=== PATIENT | female | born 1965 | race Caucasian/White ===

== ENCOUNTER 2021-05-26 15:47 | Emergency (ER) | payer OTHER, SELFPAY ==
--- NOTE | 2021-05-26 15:55 | ED.GENADULT ---
HPI - General Adult General Chief complaint: Urogenital-Female Stated complaint: CHILLS/FEVER/BACK & SIDE PAIN Source: patient Mode of arrival: ambulatory Limitations: no limitations History of Present Illness HPI narrative: Patient is a 55-year-old female who presents to the [facility] via POV for evaluation of a urinary problem that began approximately 2 to 3 weeks ago. Additionally, she states she has had chills, fever, back pain, cloudy urine, nausea. Temperature was 100.5. Ibuprofen has provided minimal relief. Nothing improves or worsen symptoms. Patient reports she was recently on a course of ciprofloxacin although she does not feel this works as well as Macrobid. She states this problem has been ongoing . She has had her PCP. Ultrasound was negative. Vitamin C and vitamin that she is unable to remember was recommended. Related Data Home Medications Medication Instructions Recorded Confirmed atorvastatin 05/26/21 bupropion HCl mg PO 05/26/21 metformin mg PO 05/26/21 thyroid (pork) [[place] Thyroid] 05/26/21 triamterene-hydrochlorothiazid cap 05/26/21 Allergies Allergy/AdvReac Type Severity Reaction Status Date / Time ezetimibe Allergy Intermediate HIVES Verified 02/25/14 14:48 Sulfa (Sulfonamide Allergy Intermediate HIVES Verified 02/25/14 14:48 Antibiotics) codeine Allergy Mild VOMITING Verified 02/25/14 14:48 Review of Systems Review of Systems: Denies history of pyelonephritis and renal calculi. Pertinent negatives: sweats, change in appetite, poor p.o. intake, malaise, recent weight loss, myalgias, lymphadenopathy, headache, dizziness, STD exposure, painful intercourse, abdominal pain, constipation, nausea, vomiting, diarrhea, abdominal cramping, dysuria, hematuria, urinary frequency/urgency, urinary incontinence, vaginal bleeding/discharge, penile drainage, testicular pain, shortness of breath, chest pain, and heart palpitations/murmurs. [facility] Past Medical History Medical History (Updated 05/26/21 @ 16:16 by Debra Gallardo, [employer]ITION WORK[employer], ) Diabetes mellitus Hyperlipidemia Hypertension Hypothyroidism Comments I have reviewed and agree with the patient's past medical, surgical, social, and family hx as documented by the RN. There is no relevant family history pertinent to the presenting complaint. Exam Narrative: GENERAL: Well-appearing, well-nourished, and in no acute distress. HEAD: Normocephalic, atraumatic. NECK: Supple. No lymphadenopathy or nuchal rigidity. CHEST: Lung sounds are clear to auscultation in bilateral lung duggan. No respiratory distress. HEART: Regular rate and rhythm. No murmur, gallop, or rub heard. ABDOMEN: Soft, non-tender, non-distended, normal active bowel sounds in all quadrants. No guarding. No rebound tenderness. No pulsatile or palpable abdominal mass(es). No CVATGU: Bladder non-distended, non-tender EXTREMITIES: Normal range of motion. No edema. SKIN: Warm, dry, no rash. No skin color changes. Excellent turgor. NEURO: No focal deficits. Alert and oriented x3. SPECIAL OBSERVATIONS: Smiling. Laughing. Course Course Emergency Course: The patient/guardian displays adequate decision making capability and despite a detailed discussion of alternatives, benefits, risks, and consequences refuses EMS transport to ER. Will transport via POV. Vital Signs Vital signs: Reviewed. Due to an elevated blood pressure, I had a detailed discussion with the patient and/or guardian regarding the need for follow-up with their primary care provider within the next 3-4 days. Patient verbalized understanding and agreed. Transfer Transfered to: [place] Transportation: Other (pov) Transfer rationale: r/o pyelo Accepting physician: ERLINDA Zambrano Transfer comments: All questions answered. Patient stable at time of transfer. Medical Decision Making Differential Diagnosis Differential Diagnosis: Nephrolithiasis, urinary tract infection, pyelonephritis, frequency of micturitio
[2021-05-26 15:56] VITALS: BP 148/81; PULSE 97; RESP 16; TEMP 38.1; O2SAT 100
== END 2021-05-26 16:16 | disposition short-term general hospital (02) ==
PROVIDERS: Emergency Provider Nurse Practitioner Family; PCP Internal Medicine
DX: N30.90 Cystitis, unspecified without hematuria (principal); E11.9 Type 2 diabetes mellitus without complications; E78.5 Hyperlipidemia, unspecified; I10 Essential (primary) hypertension; E03.9 Hypothyroidism, unspecified
CPT/HCPCS: 81003; 87077; 87086; 87088; 87186; 99203; G0463

== ENCOUNTER 2021-05-26 16:33 | Inpatient (IN) | payer OTHER, SELFPAY ==
--- NOTE | ~2021-05-26 | CT_ITS ---
EXAMINATION: CT abdomen pelvis wo con DATE: 05/26/2021 21:22 INDICATION: Right flank pain and dysuria. TECHNIQUE: Computed tomography (CT) of the abdomen and pelvis was performed without intravenous contr ast. Automated exposure control and iterative reconstruction technique were employed. The dose-length product was 561.58 mGy-cm. COMPARISON: None FINDINGS: Mild discoid atelectasis/scarring at the lingula and bilateral lower lobes. Calcified left lower lobe nodules consistent with old granulomatous disease. Heart size is normal. No pericardial or pleural e ffusion. Suggestion of sludge along with couple calcified gallstones in the dependent aspect of the n ormal-appearing gallbladder. Diffuse hepatic steatosis. Spleen, pancreas and bilateral adrenal glands are normal. Kidneys and ureters are normal with no urolithiasis, hydroureteronephrosis or perinephri c/ureteral stranding. Bowels including the appendix are normal. Bladder is normal. The uterus is not identified and has likely been surgically resected. No free intraperitoneal gas or fluid. No patholog ically enlarged abdominal or pelvic lymphadenopathy. There are few scattered small sclerotic bone isl ands at the bilateral superior pubic rami, at L4 and at the left femoral neck. IMPRESSION: 1. No urolithiasis or acute intra-abdominal/pelvic process. 2. Cholelithiasis. Reviewed, dictated and finalized at location A.
[2021-05-26 16:36] VITALS: BP 147/72; PULSE 102; RESP 20; TEMP 37.6; O2SAT 100
[2021-05-26 18:46] LABS: Basophils Percent Auto 0.3 % (0.2-1.2); Eosinophils Absolute Auto 0.1 K/mm3 (0-0.3); Eosinophils Percent Auto 0.5 % (0-4.4); Hemoglobin 13.9 g/dL (12.0-15.0); Immature Granulocyte Absolute 0.04 K/mm3 (0.00-0.031); Immature Granulocyte Percent A 0.3 % (0-0.5); Lymphocytes Absolute Auto 0.75 K/mm3 (0.9-3.2); Mean Corpuscular HGB Conc 33.9 g/dl (32-36); Mean Corpuscular Hemoglobin 30.4 pg (26-34); Mean Corpuscular Volume 89.7 fl (80-100); Mean Platelet Volume 9.9 fl (7.4-10.4); Monocytes Absolute Auto 0.6 K/mm3 (0.1-0.6); Monocytes Percent Auto 4.9 % (2.6-8.5); Neutrophils Absolute Auto 11.1 K/mm3 (1.3-6.7); Platelet Count Result 366 k/mm3 (150-375); Red Blood Count 4.57 M/mm3 (4.2-5.4); Red Cell Distribution Width 13.2 % (11.5-14.5); White Blood Count 12.6 K/mm3 (4.5-10.0)
[2021-05-26 18:54] LABS: Add Urine Microscopic? YES; Appearance Urine Cloudy (Clear); Bacteria Urine Trace /hpf; Bilirubin Urine Negative (Negative); Color Urine Yellow (Yellow); Glucose Urine UA Negative (Negative); Ketones Urine Negative (Negative); Leukocyte Esterase Ur 2+ LEU/UL (Negative); Mucus Urine Rare /lpf; Nitrate Urine Positive (Negative); Protein Urine 1+ mg/dL (Negative); Specific Grav Ur 1.015 (1.001-1.035); Squamous Epithelial Cell Urine Few /hpf (Few); Urobilinogen Urine Negative mg/dL (<2.0); WBC Urine >75 /hpf
[2021-05-26 19:00] LABS: Alanine Aminotransferase 31 U/L (4-35); Albumin Level 5.3 g/dL (3.5-5.1); Alkaline Phosphatase 149 U/L (38-126); Anion Gap 15 mmol/L (8-16); Aspartate Amino Transferase 33 U/L (14-36); Blood Urea Nitrogen 15 mg/dL (7-17); Calcium 10.1 mg/dL (8.4-10.2); Carbon Dioxide 27 mmol/L (22-30); Chloride 97 mmol/L (98-107); Estimated CRCL calculation 75 ml/min; Estimated Glomerular Filt Rate > 60; Glucose 146 mg/dL (65-110); Potassium 3.9 mmol/L (3.4-5.0); Sodium 139 mmol/L (137-145)
[2021-05-26 19:07] LABS: Blood Urine Negative (Negative)
[2021-05-26] MEDS: KETOROLAC 30 MG/ML VIAL (*BKC) IV PUSH (21:10)
--- NOTE | 2021-05-26 21:21 | ED.FEMALEGU ---
HPI - Female Genitourinary General Chief complaint: Urogenital-Female Stated complaint: fever, right flank pain Time Seen by Provider: 05/26/21 19:34 Source: patient Mode of arrival: ambulatory History of Present Illness HPI Narrative: 55-year-old female Complains of 1 day history of right-sided flank pain urinary frequency subjective fevers and nausea She apparently has been having a number of recent urinary tract infections and was recently evaluated by urology elsewhere for this and is taking cranberry juice and probiotics She had an ultrasound done also elsewhere which did not show any abnormalities or blockages as far as she knows Related Data Home Medications Medication Instructions Recorded Confirmed atorvastatin 05/26/21 bupropion HCl mg PO 05/26/21 fluoxetine mg 05/26/21 metformin mg PO 05/26/21 thyroid (pork) [[place] Thyroid] 05/26/21 triamterene-hydrochlorothiazid cap 05/26/21 Allergies Allergy/AdvReac Type Severity Reaction Status Date / Time ezetimibe Allergy Intermediate HIVES Verified 05/26/21 19:16 Sulfa (Sulfonamide Allergy Intermediate HIVES Verified 05/26/21 19:16 Antibiotics) codeine Allergy Mild VOMITING Verified 05/26/21 19:16 Review of Systems Review of Systems: All systems reviewed & are unremarkable except as noted in HPI and below Constitutional: Constitutional: Reports no additional constitutional complaints, Reports chills, Reports fatigue, Denies fever(s) and Denies headache(s) Eyes: Eyes: Reports no additional eye complaints and Denies change in vision ENT: Denies headache(s) and Denies sore throat Cardiovascular: Cardiovascular: Denies chest pain and Denies dyspnea Respiratory: Respiratory: Denies cough and Denies dyspnea Gastrointestinal: Gastrointestinal: Reports abdominal pain, Denies diarrhea, Reports nausea and Denies vomiting Genitourinary: Genitourinary: Denies urinary frequency, Reports nocturia, Reports dysuria and Reports flank pain Musculoskeletal: Musculoskeletal: Denies deformity, Denies arthralgias, Denies joint swelling and Denies numbness Integumentary/Breasts: Skin/Breast: Denies rash and Denies wounds Neurologic: Denies headache(s), Denies focal weakness and Denies numbness Psychiatric: Psychiatric: Reports no additional psychiatric complaints Endocrine: Endocrine: Reports no additional endocrine complaints Hematologic/Lymphatic: Hematologic/Lymphatic: Reports no additional hematologic/lymphatic complaints Allergic/Immunologic: Allergic/Immunologic: Reports no additional allergic/immunologic complaints [facility] Past Medical History Medical History (Updated 05/26/21 @ 21:53 by Sb Torres MD) Diabetes mellitus Hyperlipidemia Hypertension Hypothyroidism Exam Const: General: cooperative and no acute distress Orientation/consciousness: patient oriented x3 (alert) HENMT: Head: normal to inspection, normocephalic and atraumatic Ears: external ears normal General nose exam: no epistaxis Eyes: Conjunctivae: conjunctivae normal EOM: EOMs intact bilaterally Neck: Neck: normal visual inspection, supple and no JVD Resp: Effort & Inspection: normal respiratory effort and not labored Auscultation: clear to auscultation bilaterally, no rales, no rhonchi, no wheezes and other (BS =) Cardio: Rate: regular rate Rhythm: regular rhythm Heart sounds: no murmurs GI: GI Palp: Yes Soft to palpation, No Tenderness to palpation present (GI), No Guarding due to palpation present (GI) and No Rebound tenderness present : General: Yes no CVA tenderness Skin: General skin exam: normal color and no rashes or lesions noted Neuro: General: patient oriented x3 (alert) and moves all extremities Speech: normal speech Extrem: General: normal to inspection and no pedal edema Psych: Affect: normal affect Course Vital Signs Vital signs: Vital Signs Temperature 37.6 C 05/26/21 16:36 Pulse Rate 102 H 05/26/21 16:36 Respiratory Rate 2
[2021-05-26 21:33] VITALS: BP 145/73; PULSE 97; RESP 18; O2SAT 92
[2021-05-26] MEDS: LACTATED RINGERS 1,000 ML 999 ML IV CONT (22:17)
[2021-05-26 22:34] VITALS: BP 141/75; PULSE 93; RESP 14; O2SAT 95
[2021-05-26 23:42] VITALS: BP 117/62; PULSE 88; RESP 14; O2SAT 93
[2021-05-27] VITALS (13 sets, daily range): BP systolic 100–143; BP diastolic 50–61; PULSE 75–86; RESP 16–18; TEMP 36.9–38.2; O2SAT 94–98; BMI 34.9
[2021-05-27] MEDS: SODIUM CHLORIDE 0.9% IV 1,000 ML 125 ML IV CONT ×3 (00:36→16:37)
--- NOTE | 2021-05-27 00:40 | ADMGEN ---
This patient, Tammi Mercado, was admitted to Medical Room 348-. Patient/family oriented to hospital policies and general routines including ID bracelet, bed and alarms, visiting hours, pain management, procedures, bathroom and other care routines, personal items, smoking policy, room service/diet, and visiting hours. Information on how to activate the Rapid Response Team has been discussed. Patient/Family are encouraged to report perceived risks to care and to ask questions if they do not understand what they are told or what they should do.
[2021-05-27 00:54] LABS: Glucose Point of Care 149 mg/dl (65-105)
--- NOTE | 2021-05-27 02:21 | PM.IMHP ---
H&P: HPI History of Present Illness Date/Time: 05/27/21 02:21 Chief Complaint: UTI Narrative: 55-year-old female who presents with a day history of right-sided flank pain urinary symptoms with fever and nausea. She reports she has numerous urinary tract infection and has been evaluated a number of times. She states she gets antibiotic but does not clear out the complete the see gets another bout of infection again in few weeks. She reports he has never been told what bacteria has grown and whether not she has any resistant organism in her urinary tract infections. She reports he has about 8 UTI this year and about 4-5 last year. It has progressively gotten worse over the past few years now. She has also seen a urologist for this without any form diagnosis. She denies any vaginal infection in the past. In the ER she was noted to be toxic with fever mild tachycardia mild leukocytosis and was suggested to observe overnight with hydration inappropriate antibiotic for discharge since he failed multiple outpatient treatments in the past. Review of Systems Review of Systems: - CONSTITUTIONAL: Denies weight loss, Reports fever and chills. - HEENT: Denies changes in vision and hearing - RESPIRATORY: Denies SOB and cough. - CV: Denies palpitations and CP. - GI: Denies abdominal pain, vomiting and diarrhea. reports flank pain and nausea - : reports dysuria and urinary frequency. - MSK: Denies myalgia and joint pain. - SKIN: Denies rash and pruritus. - NEUROLOGICAL: Denies headache and syncope. - PSYCHIATRIC: Denies recent changes in mood. Denies anxiety and depression. All systems reviewed & are unremarkable except as noted in HPI and below Constitutional: Constitutional: Reports fatigue and Reports weakness Neurologic: Reports weakness Endocrine: Endocrine: Reports fatigue [facility] Past Medical History Medical History Diabetes mellitus Hyperlipidemia Hypertension Hypothyroidism Family History Family History (Updated 05/27/21 @ 00:47 by Kate Khan RN) Mother Graves disease Father Heart disease Hypertension Cerebrovascular accident Grandparent Diabetes type I Social History Social History (Updated 05/27/21 @ 00:48 by Kate Khan RN) Smoking status: Never smoker Alcohol intake: current Drinks per week: 3 Substance use: never Living arrangements: with family Spiritual care concerns: No Meds Home Medications and Allergies Home Medications Medication Instructions Recorded Confirmed Type atorvastatin 20 mg PO DAILY 05/26/21 05/27/21 History bupropion HCl 150 mg PO DAILY 05/26/21 05/27/21 History fluoxetine 40 mg PO DAILY 05/26/21 05/27/21 History metformin 500 mg PO DAILY 05/26/21 05/27/21 History thyroid (pork) [[place] Thyroid] 90 mg PO DAILY 05/26/21 05/27/21 History triamterene-hydrochlorothiazid 1 cap PO DAILY 05/26/21 05/27/21 History Allergies Allergy/AdvReac Type Severity Reaction Status Date / Time ezetimibe Allergy Intermediate HIVES Verified 05/27/21 00:52 Sulfa (Sulfonamide Allergy Intermediate HIVES Verified 05/27/21 00:52 Antibiotics) codeine Allergy Mild VOMITING Verified 05/27/21 00:52 Vital Signs Vital Signs - 24 hr 05/26/21 16:36 05/26/21 21:33 05/26/21 22:34 Temperature 99.6 F Pulse Rate 102 H 97 93 Respiratory Rate 20 18 14 Blood Pressure 147/72 H 145/73 H 141/75 H Pulse Oximetry 100 92 95 05/26/21 23:42 05/27/21 00:39 05/27/21 02:14 Temperature 98.4 F 99.7 F H Pulse Rate 88 86 Respiratory Rate 14 18 Blood Pressure 117/62 143/61 H Pulse Oximetry 93 98 Exam Narrative: GENERAL: The patient is well developed, not in acute distress febrile to touch HEENT: Nonicteric sclerae, PERRLA, EOMI. Oropharynx clear. Moist mucous membranes. Conjunctivae appear well perfused. CHEST: Chest wall is nontender. HEART: Regular rate and rhythm without murmur, rubs, or gallops
[2021-05-27] MEDS: IBUPROFEN 400 MG TABLET PO (02:34)
[2021-05-27 07:02] LABS: Basophils Percent Auto 0.2 % (0.2-1.2); Hematocrit 36.6 % (37.0-47.0); Hemoglobin 11.8 g/dL (12.0-15.0); Immature Granulocyte Absolute 0.09 K/mm3 (0.00-0.031); Immature Granulocyte Percent A 0.6 % (0-0.5); Lymphocytes Absolute Auto 0.93 K/mm3 (0.9-3.2); Lymphocytes Percent Auto 6.4 % (18.3-44.2); Mean Corpuscular HGB Conc 32.2 g/dl (32-36); Mean Corpuscular Hemoglobin 30.3 pg (26-34); Mean Corpuscular Volume 93.8 fl (80-100); Mean Platelet Volume 9.5 fl (7.4-10.4); Monocytes Absolute Auto 0.8 K/mm3 (0.1-0.6); Monocytes Percent Auto 5.8 % (2.6-8.5); Neutrophils Absolute Auto 12.7 K/mm3 (1.3-6.7); Platelet Count Result 286 k/mm3 (150-375); Red Cell Distribution Width 13.6 % (11.5-14.5); White Blood Count 14.6 K/mm3 (4.5-10.0)
[2021-05-27 08:00] LABS: Glucose Point of Care 134 mg/dl (65-105)
[2021-05-27] MEDS: FLUoxetine HCL 20 MG CAPSULE 40 MG PO (08:12)
[2021-05-27] MEDS: metFORMIN HCL XR 500 MG TAB.SR.24H PO (08:12)
[2021-05-27] MEDS: TRIAMTERENE 37.5 MG/HCTZ 25 MG (MAXZIDE) TABLET 1 TAB PO (08:13)
[2021-05-27] MEDS: ATORVASTATIN 20 MG TABLET PO (08:13)
[2021-05-27] MEDS: THYROID 30 MG TABLET 90 MG PO (08:13)
[2021-05-27] MEDS: buPROPion HCL XL (24 HR) 150 MG TABCR PO (08:13)
[2021-05-27 12:01] LABS: Glucose Point of Care 121 mg/dl (65-105)
[2021-05-27] MEDS: ONDANSETRON INJ 4 MG/2 ML VIAL IV PUSH (13:30)
--- NOTE | 2021-05-27 13:43 | PM.IMPN ---
Progress Note: A&P Assessment and Plan (1) UTI (urinary tract infection): Code(s): N39.0 - Urinary tract infection, site not specified Status: Acute Assessment and Plan: UA suspicious for UTI which correlates with symptoms - continue ceftriaxone, await urine cultures - she has tried Cipro and Macrobid outpatient and these have failed - she says she had urine cultures done with her primary care physician and I will try to request these records - continue ceftriaxone but if she continues to be febrile early tomorrow, may consider broadening antibiotics (2) Sepsis secondary to UTI: Code(s): A41.9 - Sepsis, unspecified organism; N39.0 - Urinary tract infection, site not specified Status: Acute Assessment and Plan: patient was septic on admission with increased white blood cell count and fevers - no blood cultures were drawn but I will draw them now stat while she has a fever for a better yield. She has had antibiotics so this may lower sensitivity - white blood cell count slightly worse today. Will trend with tomorrow labs. if it continues to go up, may consider broadening antibiotics - will check lactic acid - continue IV fluids (3) Hypertension: Code(s): I10 - Essential (primary) hypertension Status: Acute Assessment and Plan: last blood pressure 100/50 - will hold blood pressure medications at this time - this could be restarted once patient's blood pressure improves (4) Hypothyroidism: Code(s): E03.9 - Hypothyroidism, unspecified Status: Acute Assessment and Plan: continue [place] Thyroid, check TSH in the morning (5) Diabetes mellitus: Code(s): E11.9 - Type 2 diabetes mellitus without complications Status: Acute Assessment and Plan: last glucose 121 - continue metformin - patient states her last A1c was around 4 months ago and was in the 5s (6) Hyperlipidemia: Code(s): E78.5 - Hyperlipidemia, unspecified Status: Acute Assessment and Plan: continue Lipitor Time Spent With Patient Time with patient: 25 - 35 minutes Subjective Date/time seen: 05/27/21 13:43 Interval history: Pt is a 55-year-old female here for complicated UTI. Patient states she does not feel well today and is currently having fevers and significant nausea. She did have vomiting earlier and just overall does not feel well. She does have some back pain on her left flank that has improved since yesterday but still not great. She has chest pain, shortness of breath, abdominal pain or leg swelling. She said she tried Cipro and Macrobid outpatient Review of Systems Review of Systems: All systems reviewed & are unremarkable except as noted in HPI and below Exam Narrative: General: Well developed well nourished patient in NAD HEENT: normocephalic Neck: supple Neuro: Alert and oriented x4 CV:RRR Resp:CTA Abd: Soft, non distended. No pain to palpation. Positive bowel sounds. CVA tenderness to the left Extremities: No swelling, erythema, or pain to palpation. Objective Data Vital Signs Vital Signs: Vital Signs - 24 hr 05/26/21 16:36 05/26/21 21:33 05/26/21 22:34 Temperature 99.6 F Pulse Rate 102 H 97 93 Respiratory Rate 20 18 14 Blood Pressure 147/72 H 145/73 H 141/75 H Pulse Oximetry 100 92 95 05/26/21 23:42 05/27/21 00:39 05/27/21 02:14 Temperature 98.4 F 99.7 F H Pulse Rate 88 86 Respiratory Rate 14 18 Blood Pressure 117/62 143/61 H Pulse Oximetry 93 98 05/27/21 02:34 05/27/21 03:34 05/27/21 03:38 Temperature 99.7 F H 99.3 F 99.3 F Pulse Rate Respiratory Rate Blood Pressure Pulse Oximetry 05/27/21 04:53 05/27/21 08:11 05/27/21 13:24 Temperature 99.4 F 100.7 F H 100.3 F H Pulse Rate 80 Respiratory Rate 16 Blood Pressure 100/50 L Pulse Oximetry 96 Intake/Output Intake/Output: Intake & Output 05/24/21 05/25/21 05/26/2105/27
[2021-05-27 14:20] LABS: Lactic Acid Reflex 1.9 mmol/L (0.7-2.1)
[2021-05-27] MEDS: IBUPROFEN IV 400 MG in SODIUM CHLORIDE 0.9% IV 100 ML 200 MG IVPB (17:19)
[2021-05-27 17:23] LABS: Glucose Point of Care 132 mg/dl (65-105)
[2021-05-27 21:54] LABS: Glucose Point of Care 128 mg/dl (65-105)
[2021-05-28 00:07] VITALS: TEMP 37.7
[2021-05-28 00:24] VITALS: TEMP 37.7
[2021-05-28] MEDS: IBUPROFEN IV 400 MG in SODIUM CHLORIDE 0.9% IV 100 ML 200 MG IVPB ×2 (00:24→08:58)
[2021-05-28] MEDS: SODIUM CHLORIDE 0.9% IV 1,000 ML 125 ML IV CONT ×3 (02:32→20:44)
[2021-05-28 05:59] LABS: Basophils Absolute Auto 0.1 K/mm3 (0.0-0.1); Basophils Percent Auto 0.3 % (0.2-1.2); Eosinophils Percent Auto 0.1 % (0-4.4); Hematocrit 31.5 % (37.0-47.0); Hemoglobin 10.3 g/dL (12.0-15.0); Immature Granulocyte Absolute 0.33 K/mm3 (0.00-0.031); Immature Granulocyte Percent A 1.7 % (0-0.5); Lymphocytes Absolute Auto 1.07 K/mm3 (0.9-3.2); Lymphocytes Percent Auto 5.7 % (18.3-44.2); Mean Corpuscular HGB Conc 32.7 g/dl (32-36); Mean Corpuscular Hemoglobin 30.7 pg (26-34); Mean Corpuscular Volume 93.8 fl (80-100); Monocytes Absolute Auto 1.4 K/mm3 (0.1-0.6); Monocytes Percent Auto 7.6 % (2.6-8.5); Neutrophils Percent Auto 84.6 % (45.5-73.1); Platelet Count Result 221 k/mm3 (150-375); Red Blood Count 3.36 M/mm3 (4.2-5.4); Red Cell Distribution Width 13.7 % (11.5-14.5); White Blood Count 18.9 K/mm3 (4.5-10.0)
[2021-05-28 06:00] VITALS: BP 110/54; PULSE 73; RESP 16; TEMP 36.9; O2SAT 94
[2021-05-28 06:18] LABS: Anion Gap 6 mmol/L (8-16); Blood Urea Nitrogen 11 mg/dL (7-17); Calcium 7.8 mg/dL (8.4-10.2); Carbon Dioxide 28 mmol/L (22-30); Chloride 102 mmol/L (98-107); Estimated CRCL calculation 84 ml/min; Estimated Glomerular Filt Rate > 60; Glucose 145 mg/dL (65-110); Potassium 2.9 mmol/L (3.4-5.0); Sodium 136 mmol/L (137-145)
[2021-05-28 07:21] LABS: Platelet Estimate Adequate (Adequate)
[2021-05-28 07:51] LABS: Glucose Point of Care 117 mg/dl (65-105)
[2021-05-28] MEDS: ATORVASTATIN 20 MG TABLET PO (08:57)
[2021-05-28] MEDS: FLUoxetine HCL 20 MG CAPSULE 40 MG PO (08:57)
[2021-05-28] MEDS: THYROID 30 MG TABLET 90 MG PO (08:57)
[2021-05-28] MEDS: metFORMIN HCL XR 500 MG TAB.SR.24H PO (08:57)
[2021-05-28] MEDS: buPROPion HCL XL (24 HR) 150 MG TABCR PO (08:57)
[2021-05-28] MEDS: POTASSIUM CHLORIDE 20 MEQ TABLET 40 MEQ PO ×2 (08:58→13:25)
--- NOTE | 2021-05-28 09:40 | PM.IMPN ---
Progress Note: A&P Assessment and Plan (1) UTI (urinary tract infection): Code(s): N39.0 - Urinary tract infection, site not specified Status: Acute (2) Sepsis secondary to UTI: Code(s): A41.9 - Sepsis, unspecified organism; N39.0 - Urinary tract infection, site not specified Status: Acute (3) Hypertension: Code(s): I10 - Essential (primary) hypertension Status: Acute Assessment and Plan: last blood pressure 100/50 - will hold blood pressure medications at this time - this could be restarted once patient's blood pressure improves (4) Hypothyroidism: Code(s): E03.9 - Hypothyroidism, unspecified Status: Acute Assessment and Plan: continue [place] Thyroid, check TSH in the morning (5) Diabetes mellitus: Code(s): E11.9 - Type 2 diabetes mellitus without complications Status: Acute Assessment and Plan: last glucose 121 - continue metformin - patient states her last A1c was around 4 months ago and was in the 5s (6) Hyperlipidemia: Code(s): E78.5 - Hyperlipidemia, unspecified Status: Acute Assessment and Plan: continue Lipitor Additional Plan Urosepsis. MDR Ecoli UTI - switched from ctx to zosyn IV today. WBC elevation from 14 to 19, likely related to uti. Trend in am on new abx regimen. Continue IVF 125/hr. Follow blood cultures. Converted PO antiglycemics at home to Sliding scale here. Noted slowly downtrending hgb - potentially related to frerquent blood draws, no overt bleeding right now. Dilutional probably also component. Trend in am. Noted cholelithiasis on CT abdomen. No acute inflammatory changes to suggest cholecystitis. Expect incidental finding rather than related to current presentation, however if symptoms not improving with symptom resolution, may consider surgical consult. Time Spent With Patient Time with patient: less than 15 minutes Subjective Date/time seen: 05/28/21 09:40 no acute complaints resting comfortably would like to try advancing diet Review of Systems Review of Systems: All systems reviewed & are unremarkable except as noted in HPI and below Exam Const: General: no acute distress Neck: Neck: no JVD Resp: Effort & Inspection: normal respiratory effort Auscultation: clear to auscultation bilaterally Cardio: Rate: regular rate Rhythm: regular rhythm GI: GI Palp: Yes Soft to palpation and No Tenderness to palpation present (GI) Objective Data Vital Signs Vital Signs: Vital Signs - 24 hr 05/27/21 13:24 05/27/21 14:00 05/27/21 16:42 Temperature 100.3 F H 100.1 F H 99.8 F H Pulse Rate 79 Respiratory Rate 16 Blood Pressure 114/57 L Pulse Oximetry 94 05/27/21 17:19 05/27/21 21:03 05/27/21 21:09 Temperature 100.1 F H 100.1 F H 100.1 F H Pulse Rate 75 Respiratory Rate 16 Blood Pressure 101/56 L Pulse Oximetry 95 05/28/21 00:07 05/28/21 00:24 05/28/21 06:00 Temperature 99.9 F H 99.9 F H 98.5 F Pulse Rate 73 Respiratory Rate 16 Blood Pressure 110/54 L Pulse Oximetry 94 Intake/Output Intake/Output: Intake & Output 05/25/21 05/26/21 05/27/21 05/28/21 23:59 23:59 23:59 23:59 Intake Total 1050 3874 1404 Output Total 1800 Balance 1050 2074 1404 Meds/Results Medications: Active Medications Generic Name Dose Route Start Last Admin Trade Name Freq PRN Reason Stop Dose Admin Atorvastatin Calcium 20 mg 05/27/21 09:00 05/28/21 08:57 Atorvastatin 20 Mg Tablet PO 20 mg DAILY TROY Administration Bupropion HCl 150 mg 05/27/21 09:00 05/28/21 08:57 Bupropion Hcl Xl (24 Hr) 150 Mg Tabcr PO 150 mg DAILY TROY Administration Fluoxetine HCl 40 mg 05/27/21 09:00 05/28/21 08:57 Fluoxetine Hcl 20 Mg Capsule PO 40 mg DAILY TROY Administration Sodium Chloride 1,000 mls @ 125 mls/hr 05/26/21 22:25 05/28/21 02:32 Normal Saline Iv IV CONT 125 mls/hr .Q8H TROY Administration
[2021-05-28 11:57] LABS: Glucose Point of Care 105 mg/dl (65-105)
[2021-05-28] MEDS: ACETAMINOPHEN 325 MG TABLET 650 MG PO ×2 (13:25→20:29)
[2021-05-28 14:40] VITALS: BP 100/47; PULSE 74; RESP 16; TEMP 37.2; O2SAT 92
[2021-05-28 19:21] LABS: Glucose Point of Care 117 mg/dl (65-105)
[2021-05-28 21:00] LABS: Glucose Point of Care 107 mg/dl (65-105)
[2021-05-28 21:30] VITALS: BP 111/51; PULSE 85; RESP 18; TEMP 37.3; O2SAT 100
[2021-05-29] MEDS: ONDANSETRON INJ 4 MG/2 ML VIAL IV PUSH ×2 (01:20→17:05)
[2021-05-29] MEDS: KETOROLAC 30 MG/ML VIAL (*BKC) IV PUSH ×3 (01:23→17:05)
[2021-05-29] MEDS: SODIUM CHLORIDE 0.9% IV 1,000 ML 125 ML IV CONT ×3 (05:14→22:58)
[2021-05-29 05:20] VITALS: BP 105/53; PULSE 63; RESP 14; TEMP 36.6; O2SAT 93
[2021-05-29 05:58] LABS: Basophils Percent Auto 0.3 % (0.2-1.2); Eosinophils Absolute Auto 0.1 K/mm3 (0-0.3); Eosinophils Percent Auto 0.4 % (0-4.4); Hematocrit 29.5 % (37.0-47.0); Hemoglobin 9.7 g/dL (12.0-15.0); Immature Granulocyte Absolute 0.14 K/mm3 (0.00-0.031); Lymphocytes Absolute Auto 1.48 K/mm3 (0.9-3.2); Lymphocytes Percent Auto 10.8 % (18.3-44.2); Mean Corpuscular HGB Conc 32.9 g/dl (32-36); Mean Corpuscular Hemoglobin 30.5 pg (26-34); Mean Corpuscular Volume 92.8 fl (80-100); Mean Platelet Volume 9.7 fl (7.4-10.4); Monocytes Percent Auto 7.5 % (2.6-8.5); Neutrophils Absolute Auto 10.9 K/mm3 (1.3-6.7); Platelet Count Result 232 k/mm3 (150-375); Red Blood Count 3.18 M/mm3 (4.2-5.4); Red Cell Distribution Width 13.5 % (11.5-14.5); White Blood Count 13.7 K/mm3 (4.5-10.0)
[2021-05-29 06:57] LABS: Alanine Aminotransferase 51 U/L (4-35); Albumin Level 3.2 g/dL (3.5-5.1); Alkaline Phosphatase 132 U/L (38-126); Anion Gap 7 mmol/L (8-16); Aspartate Amino Transferase 60 U/L (14-36); Bilirubin,Total 1.1 mg/dL (0.2-1.3); Blood Urea Nitrogen 10 mg/dL (7-17); Calcium 7.6 mg/dL (8.4-10.2); Carbon Dioxide 25 mmol/L (22-30); Chloride 104 mmol/L (98-107); Estimated CRCL calculation 76 ml/min; Estimated Glomerular Filt Rate > 60; Glucose 158 mg/dL (65-110); Magnesium 1.9 mg/dL (1.6-2.3); Phosphorus 2.3 mg/dL (2.5-4.5); Potassium 3.3 mmol/L (3.4-5.0); Sodium 136 mmol/L (137-145)
[2021-05-29 07:38] LABS: Glucose Point of Care 125 mg/dl (65-105)
[2021-05-29] MEDS: THYROID 30 MG TABLET 90 MG PO (08:58)
[2021-05-29] MEDS: ATORVASTATIN 20 MG TABLET PO (08:58)
[2021-05-29] MEDS: buPROPion HCL XL (24 HR) 150 MG TABCR PO (08:58)
[2021-05-29] MEDS: FLUoxetine HCL 20 MG CAPSULE 40 MG PO (08:59)
--- NOTE | 2021-05-29 09:35 | PM.IMPN ---
Progress Note: A&P Assessment and Plan (1) UTI (urinary tract infection): Code(s): N39.0 - Urinary tract infection, site not specified Status: Acute (2) Sepsis secondary to UTI: Code(s): A41.9 - Sepsis, unspecified organism; N39.0 - Urinary tract infection, site not specified Status: Acute (3) Hypertension: Code(s): I10 - Essential (primary) hypertension Status: Acute (4) Hypothyroidism: Code(s): E03.9 - Hypothyroidism, unspecified Status: Acute (5) Diabetes mellitus: Code(s): E11.9 - Type 2 diabetes mellitus without complications Status: Acute (6) Hyperlipidemia: Code(s): E78.5 - Hyperlipidemia, unspecified Status: Acute Additional Plan Urosepsis. MDR Ecoli UTI - switched from ctx to zosyn IV . WBC elevation from 14 to 19, likely related to uti. Trend in am on new abx regimen. Continue IVF 125/hr. Follow blood cultures, negative so far. Converted PO antiglycemics at home to Sliding scale here. Noted slowly downtrending hgb - potentially related to frerquent blood draws, no overt bleeding right now. Dilutional probably also component. Trend in am. Noted cholelithiasis on CT abdomen. No acute inflammatory changes to suggest cholecystitis. Expect incidental finding rather than related to current presentation, however if symptoms not improving with symptom resolution, may consider surgical consult. Time Spent With Patient Time with patient: less than 15 minutes Subjective Date/time seen: 05/29/21 09:35 resting comfortably no acute complaints Review of Systems Review of Systems: All systems reviewed & are unremarkable except as noted in HPI and below Exam Const: General: no acute distress Neck: Neck: no JVD Resp: Effort & Inspection: normal respiratory effort Auscultation: clear to auscultation bilaterally Cardio: Rate: regular rate Rhythm: regular rhythm Objective Data Vital Signs Vital Signs: Vital Signs - 24 hr 05/28/21 14:40 05/28/21 21:30 05/29/21 05:20 Temperature 98.9 F 99.1 F 97.8 F Pulse Rate 74 85 63 Respiratory Rate 16 18 14 Blood Pressure 100/47 L 111/51 L 105/53 L Pulse Oximetry 92 100 93 Intake/Output Intake/Output: Intake & Output 05/26/21 05/27/21 05/28/21 05/29/21 23:59 23:59 23:59 23:59 Intake Total 1050 6034 8306 1930 Output Total 1800 2000 600 Balance 1050 2074 2774 1330 Meds/Results Medications: Active Medications Generic Name Dose Route Start Last Admin Trade Name Freq PRN Reason Stop Dose Admin Acetaminophen 650 mg 05/28/21 12:58 05/28/21 20:29 Acetaminophen 325 Mg Tablet PO 650 mg Q6H PRN Administration Mild Pain (1-3) or Fever Atorvastatin Calcium 20 mg 05/27/21 09:00 05/29/21 08:58 Atorvastatin 20 Mg Tablet PO 20 mg DAILY TROY Administration Bupropion HCl 150 mg 05/27/21 09:00 05/29/21 08:58 Bupropion Hcl Xl (24 Hr) 150 Mg Tabcr PO 150 mg DAILY TROY Administration Dextrose 12.5 gm 05/28/21 09:48 Dextrose 50% 25 Gm/50 Ml Syringe IV PUSH PRN PRN Hypoglycemia Protocol Fluoxetine HCl 40 mg 05/27/21 09:00 05/29/21 08:59 Fluoxetine Hcl 20 Mg Capsule PO 40 mg DAILY TROY Administration Glucagon 1 mg 05/28/21 09:48 Glucagon For Inj 1 Mg Vial IM PRN PRN Hypoglycemia Protocol Glucose 15 gm 05/28/21 09:48 Glucose Oral Gel 15 Gm Of Glucse In 37.5 Gm Tube PO PRN PRN Hypoglycemia Protocol Sodium Chloride 1,000 mls @ 125 mls/hr 05/26/21 22:25 05/29/21 05:46 Normal Saline Iv IV CONT 125 mls/hr .Q8H TROY Infusion Piperacillin/Tazobactam/Dextrose 3.375 gm in 50 mls @ 100 mls/hr 05/28/21 12:00 05/29/21 05:46 Zosyn 3.375 Gm/D5w 50ml Pm IVPB Infused Q6HR TROY Infusion Dextrose 1,000 mls @ 100 mls/hr 05/28/21 09:48 Dextrose 5% 1,000 Ml IVPB PRN PRN Hypoglycemia Protocol Insulin Aspart 2 - 5 units 05/28/21 12:00 05/29/21 07:47 Insulin Aspar
[2021-05-29] MEDS: POTASSIUM PHOS/SODIUM PHOS 250 MG TABLET PO (10:22)
[2021-05-29 14:00] VITALS: BP 114/48; PULSE 74; RESP 20; TEMP 36.9
[2021-05-29 17:18] LABS: Glucose Point of Care 117 mg/dl (65-105)
[2021-05-29] MEDS: SIMETHICONE 80 MG TAB.CHEW PO ×2 (17:32→20:26)
[2021-05-29 21:03] VITALS: BP 130/54; PULSE 71; RESP 16; TEMP 36.8; O2SAT 94
[2021-05-29 22:14] LABS: Glucose Point of Care 130 mg/dl (65-105)
[2021-05-30] MEDS: ONDANSETRON INJ 4 MG/2 ML VIAL IV PUSH ×2 (02:29→07:50)
[2021-05-30] MEDS: KETOROLAC 30 MG/ML VIAL (*BKC) IV PUSH ×2 (02:29→17:31)
[2021-05-30 05:59] LABS: Basophils Percent Auto 0.3 % (0.2-1.2); Eosinophils Absolute Auto 0.1 K/mm3 (0-0.3); Eosinophils Percent Auto 0.9 % (0-4.4); Hematocrit 27.5 % (37.0-47.0); Hemoglobin 9.1 g/dL (12.0-15.0); Immature Granulocyte Absolute 0.12 K/mm3 (0.00-0.031); Immature Granulocyte Percent A 1.1 % (0-0.5); Lymphocytes Absolute Auto 1.78 K/mm3 (0.9-3.2); Lymphocytes Percent Auto 16.9 % (18.3-44.2); Mean Corpuscular HGB Conc 33.1 g/dl (32-36); Mean Corpuscular Hemoglobin 29.7 pg (26-34); Mean Corpuscular Volume 89.9 fl (80-100); Mean Platelet Volume 9.6 fl (7.4-10.4); Monocytes Percent Auto 9.3 % (2.6-8.5); Neutrophils Absolute Auto 7.5 K/mm3 (1.3-6.7); Neutrophils Percent Auto 71.5 % (45.5-73.1); Platelet Count Result 268 k/mm3 (150-375); Red Blood Count 3.06 M/mm3 (4.2-5.4); Red Cell Distribution Width 13.6 % (11.5-14.5); White Blood Count 10.5 K/mm3 (4.5-10.0)
[2021-05-30 06:00] VITALS: BP 133/74; PULSE 71; RESP 16; TEMP 36.6; O2SAT 93
[2021-05-30 06:10] LABS: Alanine Aminotransferase 76 U/L (4-35); Albumin Level 3.2 g/dL (3.5-5.1); Alkaline Phosphatase 166 U/L (38-126); Anion Gap 8 mmol/L (8-16); Aspartate Amino Transferase 80 U/L (14-36); Bilirubin,Total 1.5 mg/dL (0.2-1.3); Blood Urea Nitrogen 10 mg/dL (7-17); Calcium 7.5 mg/dL (8.4-10.2); Carbon Dioxide 24 mmol/L (22-30); Chloride 104 mmol/L (98-107); Estimated CRCL calculation 84 ml/min; Estimated Glomerular Filt Rate > 60; Glucose 122 mg/dL (65-110); Magnesium 1.9 mg/dL (1.6-2.3); Phosphorus 2.8 mg/dL (2.5-4.5); Potassium 3.3 mmol/L (3.4-5.0); Sodium 136 mmol/L (137-145)
[2021-05-30 07:47] LABS: Glucose Point of Care 110 mg/dl (65-105)
[2021-05-30] MEDS: SODIUM CHLORIDE 0.9% IV 1,000 ML 125 ML IV CONT (07:50)
[2021-05-30] MEDS: THYROID 30 MG TABLET 90 MG PO (07:52)
[2021-05-30] MEDS: ATORVASTATIN 20 MG TABLET PO (07:52)
[2021-05-30] MEDS: buPROPion HCL XL (24 HR) 150 MG TABCR PO (07:52)
[2021-05-30] MEDS: FLUoxetine HCL 20 MG CAPSULE 40 MG PO (07:52)
--- NOTE | 2021-05-30 09:54 | PM.IMPN ---
Progress Note: A&P Assessment and Plan (1) UTI (urinary tract infection): Code(s): N39.0 - Urinary tract infection, site not specified Status: Acute (2) Sepsis secondary to UTI: Code(s): A41.9 - Sepsis, unspecified organism; N39.0 - Urinary tract infection, site not specified Status: Acute (3) Hypertension: Code(s): I10 - Essential (primary) hypertension Status: Acute (4) Hypothyroidism: Code(s): E03.9 - Hypothyroidism, unspecified Status: Acute Assessment and Plan: continue [place] Thyroid, check TSH in the morning (5) Diabetes mellitus: Code(s): E11.9 - Type 2 diabetes mellitus without complications Status: Acute (6) Hyperlipidemia: Code(s): E78.5 - Hyperlipidemia, unspecified Status: Acute Assessment and Plan: continue Lipitor Additional Plan Noted slowly downtrending hgb 9.1 this am - potentially related to frequent blood draws, or possibly dilutional also in setting of IVF. However, will obtain anemia labs incl haptoglobin, LDH, reticulocytes, b12/folate, etc. Urosepsis. MDR Ecoli UTI - initially on ctx, switched to zosyn IV . Leukocytosis now resolved, afebrile, and patient feeling better. Continue IVF 125/hr. Follow blood cultures, negative so far. Plan to switch to Macrobid tomorrow after completing 3 days IV Zosyn, if clinical picture allows. Converted PO antiglycemics at home to Sliding scale here. Noted cholelithiasis on CT abdomen. No acute inflammatory changes to suggest cholecystitis. Expect incidental finding rather than related to current presentation, however if symptoms not improving with symptom resolution, may consider surgical consult. Time Spent With Patient Time with patient: less than 15 minutes Subjective Date/time seen: 05/30/21 09:54 no acute complaints resting comfortably Review of Systems Review of Systems: All systems reviewed & are unremarkable except as noted in HPI and below Exam Const: General: no acute distress Neck: Neck: no JVD Resp: Effort & Inspection: normal respiratory effort Auscultation: clear to auscultation bilaterally Cardio: Rate: regular rate Rhythm: regular rhythm GI: GI Palp: Yes Soft to palpation and Yes Tenderness to palpation present (GI) Other: some lower abdominal pain Objective Data Vital Signs Vital Signs: Vital Signs - 24 hr 05/29/21 14:00 05/29/21 21:03 05/30/21 06:00 Temperature 98.4 F 98.3 F 97.9 F Pulse Rate 74 71 71 Respiratory Rate 20 16 16 Blood Pressure 114/48 L 130/54 L 133/74 Pulse Oximetry 94 93 Intake/Output Intake/Output: Intake & Output 05/27/21 05/28/21 05/29/21 05/30/21 23:59 23:59 23:59 23:59 Intake Total 3874 4774 4720 2030 Output Total 1800 2000 1400 1350 Balance 2074 2774 2971 680 Meds/Results Medications: Active Medications Generic Name Dose Route Start Last Admin Trade Name Freq PRN Reason Stop Dose Admin Acetaminophen 650 mg 05/28/21 12:58 05/28/21 20:29 Acetaminophen 325 Mg Tablet PO 650 mg Q6H PRN Administration Mild Pain (1-3) or Fever Atorvastatin Calcium 20 mg 05/27/21 09:00 05/30/21 07:52 Atorvastatin 20 Mg Tablet PO 20 mg DAILY TROY Administration Bupropion HCl 150 mg 05/27/21 09:00 05/30/21 07:52 Bupropion Hcl Xl (24 Hr) 150 Mg Tabcr PO 150 mg DAILY TROY Administration Dextrose 12.5 gm 05/28/21 09:48 Dextrose 50% 25 Gm/50 Ml Syringe IV PUSH PRN PRN Hypoglycemia Protocol Fluoxetine HCl 40 mg 05/27/21 09:00 05/30/21 07:52 Fluoxetine Hcl 20 Mg Capsule PO 40 mg DAILY TROY Administration Glucagon 1 mg 05/28/21 09:48 Glucagon For Inj 1 Mg Vial IM PRN PRN Hypoglycemia Protocol Glucose 15 gm 05/28/21 09:48 Glucose Oral Gel 15 Gm Of Glucse In 37.5 Gm Tube PO PRN PRN Hypoglycemia Protocol Sodium Chloride 1,000 mls @ 125 mls/hr 05/26/21 22:25 05/30/21 07:50 Normal Saline Iv IV
[2021-05-30] MEDS: POTASSIUM CHLORIDE 20 MEQ TABLET 40 MEQ PO (10:22)
[2021-05-30 11:04] LABS: Immature Reticulocyte Fraction 21.1 % (3.0-15.9); Reticulocyte Hemoglobin Conten 27.2 pg (28.2-35.7); Reticulocytes Absolute 0.04 B/L (32.2-175.7)
[2021-05-30 11:17] LABS: Iron 37 ug/dL (37-170)
[2021-05-30 11:18] LABS: Lactate Dehydrogenase 656 U/L (313-618)
[2021-05-30 11:26] LABS: Percent Iron Saturation 14 % (20-50)
[2021-05-30 12:05] LABS: Glucose Point of Care 112 mg/dl (65-105)
[2021-05-30 12:30] LABS: Folic Acid > 20.0 ng/mL (2.76->20)
[2021-05-30 14:00] VITALS: BP 132/60; PULSE 74; RESP 24; TEMP 35.7
[2021-05-30 17:54] LABS: Glucose Point of Care 158 mg/dl (65-105)
[2021-05-30 18:54] LABS: IFOB Positive Control Positive; Immunochemical Fecal Occult Bl Negative (N)
[2021-05-30 20:46] VITALS: BP 143/78; PULSE 65; RESP 16; TEMP 36.9; O2SAT 93
[2021-05-30 21:17] LABS: Glucose Point of Care 132 mg/dl (65-105)
[2021-05-31] MEDS: ONDANSETRON INJ 4 MG/2 ML VIAL IV PUSH ×2 (02:04→09:11)
[2021-05-31] MEDS: ACETAMINOPHEN 325 MG TABLET 650 MG PO (02:07)
[2021-05-31 05:38] LABS: Hemoglobin 9.4 g/dL (12.0-15.0); Mean Corpuscular HGB Conc 33.6 g/dl (32-36); Mean Corpuscular Hemoglobin 30.1 pg (26-34); Mean Corpuscular Volume 89.7 fl (80-100); Mean Platelet Volume 9.3 fl (7.4-10.4); Platelet Count Result 304 k/mm3 (150-375); Red Blood Count 3.12 M/mm3 (4.2-5.4); Red Cell Distribution Width 13.7 % (11.5-14.5); White Blood Count 8.4 K/mm3 (4.5-10.0)
[2021-05-31 06:00] VITALS: BP 142/83; PULSE 68; RESP 16; TEMP 36.2; O2SAT 92
[2021-05-31 06:02] LABS: Alanine Aminotransferase 86 U/L (4-35); Albumin Level 3.3 g/dL (3.5-5.1); Alkaline Phosphatase 191 U/L (38-126); Anion Gap 8 mmol/L (8-16); Aspartate Amino Transferase 76 U/L (14-36); Bilirubin,Total 1.3 mg/dL (0.2-1.3); Blood Urea Nitrogen 11 mg/dL (7-17); Calcium 7.9 mg/dL (8.4-10.2); Carbon Dioxide 25 mmol/L (22-30); Chloride 104 mmol/L (98-107); Estimated CRCL calculation 84 ml/min; Estimated Glomerular Filt Rate > 60; Glucose 144 mg/dL (65-110); Magnesium 1.9 mg/dL (1.6-2.3); Phosphorus 3.1 mg/dL (2.5-4.5); Potassium 3.7 mmol/L (3.4-5.0); Sodium 137 mmol/L (137-145)
[2021-05-31 06:19] LABS: Band Neutrophils Percent 8 % (0-6); Lymphocytes Absolute Manual 1.93 K/mm3 (1.1-4.5); Monocytes Absolute Manual 0.67 K/mm3 (0.1-0.90); Monocytes Percent Manual 8 % (3-9); Neutrophils Absolute Manual 5.79 K/mm3 (1.7-7.2); Neutrophils Percent Manual 61 % (46-73); Platelet Estimate Adequate (Adequate); Total Cells Counted 100
[2021-05-31 08:29] LABS: Glucose Point of Care 154 mg/dl (65-105)
[2021-05-31] MEDS: buPROPion HCL XL (24 HR) 150 MG TABCR PO (09:08)
[2021-05-31] MEDS: FLUoxetine HCL 20 MG CAPSULE 40 MG PO (09:08)
[2021-05-31] MEDS: ATORVASTATIN 20 MG TABLET PO (09:08)
[2021-05-31] MEDS: THYROID 30 MG TABLET 90 MG PO (09:08)
[2021-05-31] MEDS: KETOROLAC 30 MG/ML VIAL (*BKC) IV PUSH (09:11)
[2021-05-31 11:47] LABS: Glucose Point of Care 140 mg/dl (65-105)
--- NOTE | 2021-05-31 13:18 | PM.DS ---
DS: Admitting Diagnosis Discharge Date 05/31/2021 Admitting Diagnosis UTI DS: Discharge Diagnosis Discharge Diagnosis (1) Sepsis secondary to UTI: Code(s): A41.9 - Sepsis, unspecified organism; N39.0 - Urinary tract infection, site not specified Status: Acute Assessment and Plan: Septic on presentation with leukocytosis and fever up to 100.7. Source of infection is urinary tract infection Blood cultures with no growth to date, final cultures will be monitored. Leukocytosis resolved. She remained afebrile. Treatment for urinary tract infection as described below (2) UTI (urinary tract infection): Code(s): N39.0 - Urinary tract infection, site not specified Status: Acute Assessment and Plan: Urinalysis abnormal on presentation she complained of dysuria. Urine culture with growth of >100k ESBL She was started on ceftriaxone but was transitioned to IV Zosyn following susceptibility report showing multi-drug resistant UTI She received 4 days of IV Zosyn. She was transitioned to Macrobid as an outpatient based on sensitivities Reports history of frequent UTI and she should follow up with her urologist as an outpatient. (3) Hypertension: Code(s): I10 - Essential (primary) hypertension Status: Acute Assessment and Plan: Blood pressures reviewed and were generally well controlled. Continue home triamterene-hydrochlorothiazide (4) Hypothyroidism: Code(s): E03.9 - Hypothyroidism, unspecified Status: Acute Assessment and Plan: TSH within normal limits. Continue [place] thyroid (5) Diabetes mellitus: Code(s): E11.9 - Type 2 diabetes mellitus without complications Status: Acute Assessment and Plan: Blood sugars well controlled during hospital stay. Continue metformin (6) Hyperlipidemia: Code(s): E78.5 - Hyperlipidemia, unspecified Status: Acute Assessment and Plan: Continue atorvastatin (7) Cholelithiasis: Code(s): K80.20 - Calculus of gallbladder without cholecystitis without obstruction Status: Acute Assessment and Plan: Incidentally found on CT abdomen/pelvis. No acute inflammatory changes to suggest cholecystitis. She was asymptomatic and was able to tolerate a regular diet. She was informed of these findings. Discussed that if she were to develop any symptoms, she could be referred to General Surgery as an outpatient. DS: Summary Hospital Course Hospital Course: Date of admission: 05/26/21 Date of discharge: 05/31/21 Tammi Mercado is a 55 year old female with a history of diabetes mellitus, hypertension, hyperlipidemia, hypothyroidism, and frequent urinary tract infections who presented to the emergency department on 05/26/2021 with complaints of right-sided flank pain, urinary frequency, and fevers. On presentation to the emergency department, her vital signs were stable, white blood cell count 12.6, additional CBC and BMP unremarkable, UA grossly abnormal, and CT abdomen/pelvis showed normal bladder, no urolithiasis or acute intra-abdominal process. She was admitted to the hospitalist service for further evaluation management. Please see above for further details. She was treated with IV antibiotics for urinary tract infection. She had symptomatic improvement with treatment. Fevers resolved in white blood cell count normalized. She was feeling much better and requested discharge home. Given her overall improvement, she was determined to no longer require inpatient care and was felt to be stable for discharge. We discussed worrisome signs and symptoms for which to return and she was educated on her medications. She was discharged in hemodynamically stable condition on 05/31/2021. Status at Discharge Functional status at discharge: independent ambulation Overall status at discharge: patient is progressing back to baseline Time Spent with Patient Time attestat
[2021-06-02 19:45] LABS: Haptoglobin 414 mg/dL (43-212)
== END 2021-05-31 15:00 | disposition home or self-care (01) | DRG 872 ==
LOC: ANHED 22:06 → ANH3MED 05-27 00:07
PROVIDERS: Internal Medicine; Physician Assistant; Admitting Provider Internal Medicine; Emergency Provider Emergency Medicine; PCP Internal Medicine; Visit Provider Internal Medicine
DX: A41.9 Sepsis, unspecified organism (principal); N10 Acute pyelonephritis; E03.9 Hypothyroidism, unspecified; E11.9 Type 2 diabetes mellitus without complications; I10 Essential (primary) hypertension; E78.5 Hyperlipidemia, unspecified; K80.20 Calculus of gallbladder without cholecystitis without obstruction
CPT/HCPCS: 36415; 74176; 80048; 80053; 81001; 82274; 82607; 82728; 82746; 82948; 83010; 83540; 83550; 83605; 83615; 83735; 84100; 84443; 85025; 85046; 87040; 96361; 96365; 96366; 96367; 96375; 96376; 99285; A9270; G0378; J0131; J0696; J1741; J1885; J2405; J2543; J7030; J7120

== ENCOUNTER 2022-06-04 11:13 | Emergency (ER) | payer OTHER, SELFPAY ==
--- NOTE | 2022-06-04 11:20 | ED.URI ---
HPI - URI/Sore Throat General Chief Complaint: Upper Respiratory Infection Stated Complaint: sore throat,fever,chills Time Seen by Provider: 06/04/22 11:42 Source: patient and RN notes reviewed Mode of arrival: ambulatory Limitations: no limitations History of Present Illness HPI Narrative: 56-year-old female presents with concern for 2-day history of nasal congestion, fever, sore throat. She reports she was concerned for strep throat because she had such. She reports she has had chills, fever of up to 101.7. She reports she has been taking Advil cold and flu medicine. She denies known sick contacts MD elicited complaint: sore throat and nasal congestion Related Data Home Medications Medication Instructions Recorded Confirmed atorvastatin 20 mg tablet 20 mg PO DAILY 05/26/21 05/27/21 bupropion HCl 150 mg 24 hr tablet, 150 mg PO DAILY 05/26/21 05/27/21 extended release fluoxetine 40 mg capsule 40 mg PO DAILY 05/26/21 05/27/21 metformin 500 mg tablet,extended 500 mg PO DAILY 05/26/21 05/27/21 release 24 hr thyroid (pork) 90 mg tablet 90 mg PO DAILY 05/26/21 05/27/21 ([place] Thyroid) triamterene 37.5 1 cap PO DAILY 05/26/21 05/27/21 mg-hydrochlorothiazide 25 mg capsule Allergies Allergy/AdvReac Type Severity Reaction Status Date / Time ezetimibe Allergy Intermediate HIVES Verified 05/27/21 00:52 Sulfa (Sulfonamide Allergy Intermediate HIVES Verified 05/27/21 00:52 Antibiotics) codeine AdvReac Mild VOMITING Verified 05/29/21 17:13 Review of Systems Review of Systems: CONSTITUTIONAL: Reports malaise, chills, fever. EYES: Denies visual changes, redness, or discharge. ENT: Reports rhinorrhea, congestion, and sore throat. CARDIOVASCULAR: Denies chest pain, palpitations, or edema. RESPIRATORY: Reports cough. Denies dyspnea. GASTROINTESTINAL: Denies abdominal pain, nausea, vomiting, diarrhea SKIN: Denies rash or itching. MUSCULOSKELETAL: Reports myalgia. NEUROLOGIC: Denies headache. All systems reviewed & are unremarkable except as noted in HPI and below PMFSH Past Medical History Medical History (Updated 06/04/22 @ 11:48 by Ame Asher NP) Diabetes mellitus Hyperlipidemia Hypertension Hypothyroidism Family History Family History (Updated 05/27/21 @ 00:47 by Kate Khan, RN) Mother Graves disease Father Heart disease Hypertension Cerebrovascular accident Grandparent Diabetes type I Social History Social History (Updated 05/27/21 @ 00:48 by Kate Khan, RN) Smoking status: Never smoker Alcohol intake: current Drinks per week: 3 Substance use: never Spiritual care concerns: No Comments At time of signature, agree with nursing past medical, surgical, social and family history. There is no relevant family history pertinent to the presenting complaint Exam Narrative: GENERAL: Nontoxic appearing and in no acute distress. HEAD: Normocephalic EYES: PERRLA, conjunctivae clear ENT: Nares clear, turbinates edematous and erythematous, clear discharge. Mucous membranes moist. TM pearly zelaya with dull light reflex bilaterally; no tragal tenderness. Oropharynx not erythematous without lesions. Tonsils not enlarged and without exudate, no drooling, no hoarseness, no trismus, uvula midline. NECK: Supple. No lymphadenopathy CHEST: Clear to auscultation, breath sounds equal. No wheezing, rhonchi, rales, or stridor. No respiratory distress, speaks in full sentences. HEART: Regular rate and rhythm. No murmur heard. SKIN: Warm, dry, no rash. NEURO: Alert and oriented x3. PSYCH: Normal mood and affect Course Course Emergency Course: Patient is aware of diagnosis, understands and agrees to treatment plan. Anticipatory guidance given. Patient agrees to follow-up as directed and is aware of reasons to seek care at the emergency department. Portions of this record may have been created with voice recognition software Level of Care: Express Care Visit Vital Signs Vital si
[2022-06-04 11:27] VITALS: BP 121/76; PULSE 89; RESP 16; TEMP 36.5; O2SAT 98
== END 2022-06-04 11:54 | disposition home or self-care (01) ==
PROVIDERS: Emergency Provider Nurse Practitioner; PCP Internal Medicine
DX: J06.9 Acute upper respiratory infection, unspecified (principal); E11.9 Type 2 diabetes mellitus without complications; E78.5 Hyperlipidemia, unspecified; I10 Essential (primary) hypertension; E03.9 Hypothyroidism, unspecified
CPT/HCPCS: 87081; 87880; 99213; G0463